=== PATIENT | female | born 1990 | race Caucasian/White ===

== ENCOUNTER 2016-11-21 03:14 | Emergency (ER) | payer OTHER ==
[~2016-11-21 03:14] MED LIST: ALBUTEROL20 ml INH; CITALOPRAM HBR40 MG PO; DICLOFENAC PO; FLEXERIL PO; IRON 100 PLUS1 EAC1 PO; IRON325 ( 65 ) PO; LORTAB 5-325 M1 EACH PO; OMEPRAZOLE40 M1 PO; ZANTAC150 M1 PO; ZOFRAN ODT4 MG PO
== END 2016-11-21 04:25 | disposition home or self-care (01) ==
LOC: CED 03:14
DX: L23.9 Allergic contact dermatitis, unspecified cause (principal); J45.909 Unspecified asthma, uncomplicated; F32.9 Major depressive disorder, single episode, unspecified; F41.9 Anxiety disorder, unspecified; Z98.51 Tubal ligation status; Z98.890 Other specified postprocedural states
CPT/HCPCS: 99282

== ENCOUNTER 2016-12-26 20:16 | Emergency (ER) | payer OTHER | END 2016-12-26 21:00 | disposition left against medical advice (07) | LOC: CED 20:16 | DX: Z53.21 Procedure and treatment not carried out due to patient leaving prior to being seen by health care provider (principal) ==